=== PATIENT | female | born 1955 | race Caucasian/White ===

== ENCOUNTER → 2023-09-30 09:31 | Outpatient (REF) | payer MEDICARE, OTHER, SELFPAY | LOC: HWWDC 09:31 | PROVIDERS: ATTENDING PHYSICIAN Nurse Practitioner Family; FAMILY PHYSICIAN Family Medicine | DX: Z12.31 Encounter for screening mammogram for malignant neoplasm of breast (principal) | CPT/HCPCS: 77063; 77067 ==

== ENCOUNTER → 2024-07-21 09:32 | Outpatient (REF) | payer MEDICARE, OTHER, SELFPAY | LOC: HWRCS 09:32 | PROVIDERS: ATTENDING PHYSICIAN Student in an Organized Health Care Education/Training Program; FAMILY PHYSICIAN Physician Assistant Medical; REFERRING PHYSICIAN Obstetrics & Gynecology | DX: Z98.890 Other specified postprocedural states (principal); I34.0 Nonrheumatic mitral (valve) insufficiency; Z78.0 Asymptomatic menopausal state | CPT/HCPCS: 77080 ==

== ENCOUNTER → 2024-08-14 09:02 | Outpatient (REF) | payer MEDICARE, OTHER, SELFPAY | LOC: HWRCS 09:02 | PROVIDERS: ATTENDING PHYSICIAN Student in an Organized Health Care Education/Training Program | DX: Z98.890 Other specified postprocedural states (principal); I34.0 Nonrheumatic mitral (valve) insufficiency | CPT/HCPCS: 93306 ==

== ENCOUNTER → 2024-08-31 07:55 | Outpatient (REF) | payer MEDICARE, OTHER, SELFPAY | LOC: HWRAD 07:55 | PROVIDERS: ATTENDING PHYSICIAN Obstetrics & Gynecology; FAMILY PHYSICIAN Physician Assistant Medical | DX: N95.0 Postmenopausal bleeding (principal) | CPT/HCPCS: 76830; 76856 ==

== ENCOUNTER → 2024-09-25 06:24 | Outpatient (REF) | payer MEDICARE, OTHER, SELFPAY ==
[2024-09-25 08:49] LABS: Hematocrit 37.4 % (37.0-47.0); Hemoglobin 12.5 g/dL (12.0-16.0); Mean Corp Hgb Conc. 33.4 g/dL (33.0-37.0); Mean Corpuscular Hgb 34.2 pg (27.0-31.0); Mean Corpuscular Volume 102.5 fL (81.0-99.0); Mean Platelet Volume 10.3 fL (7.4-10.4); Platelet Count 254 10^3/uL (130-400); Red Blood Cell Count 3.65 10^6/uL (4.20-5.40); Red Cell Dist. Width 12.4 % (11.5-14.5)
[2024-09-25 09:21] LABS: Blood Urea Nitrogen 23 mg/dl (7-17); Calcium 10.4 mg/dl (8.4-10.2); Carbon Dioxide 29 mmol/L (22-30); Chloride 102 mmol/L (98-107); Glucose 87 mg/dl (70-99); Potassium 4.6 mmol/L (3.5-5.1); Sodium 142 mmol/L (135-145)
== END ==
LOC: SDSPAT 06:24
PROVIDERS: ATTENDING PHYSICIAN Obstetrics & Gynecology; FAMILY PHYSICIAN Physician Assistant Medical
DX: Z01.818 Encounter for other preprocedural examination (principal)
CPT/HCPCS: 36415; 80048; 85027; 86850; 86900; 86901; 93005

== ENCOUNTER 2024-10-10 06:23 | Day surgery (SDC) | payer MEDICARE, OTHER, SELFPAY ==
[2024-09-25 14:01] VITALS: BMI 23.2
--- NOTE | 2024-09-25 16:02 | PTCARENOTE ---
Abnormal ECG done 09/25/[address] Dudley, no further interventions requested.
[2024-10-10] VITALS (14 sets, daily range): BP systolic 100–138; BP diastolic 66–91; BMI 23.2
[2024-10-10] MEDS: Pyridium 200 MG PO (12:29)
[2024-10-10] MEDS: NORMOSOL-R/PLASMALYTE-A 1000 IV ×2 (12:29→19:25)
[2024-10-10] MEDS: HEPARIN 5000 UNITS SC (12:29)
[2024-10-10] MEDS: COLACE 100 MG PO (21:14)
[2024-10-10] MEDS: TYLENOL 650 MG PO (21:14)
[2024-10-10] MEDS: TORADOL 15 MG IV (21:14)
[2024-10-10] MEDS: COREG 3.125 MG PO (21:15)
--- NOTE | 2024-10-10 23:40 | PTCARENOTE ---
Pt arrived 1999 from PACU. Pt AAOX3. no complaints of pain. VSS. 100% on 2L NC. IVF infusing. vasquez draining orange urine. oriented to room and call dugan. bed locked and in lowest position. care ongoing.
[2024-10-11] MEDS: TORADOL 15 MG IV ×3 (02:18→13:55)
[2024-10-11 03:01] VITALS: BP 101/69
[2024-10-11] MEDS: NORMOSOL-R/PLASMALYTE-A 1000 IV ×2 (03:25→11:25)
[2024-10-11 06:54] LABS: Hematocrit 30.5 % (37.0-47.0); Hemoglobin 10.3 g/dL (12.0-16.0); Mean Corp Hgb Conc. 33.8 g/dL (33.0-37.0); Mean Corpuscular Hgb 34.1 pg (27.0-31.0); Mean Platelet Volume 9.7 fL (7.4-10.4); Platelet Count 214 10^3/uL (130-400); Red Blood Cell Count 3.02 10^6/uL (4.20-5.40); White Blood Cell Count 5.5 10^3/uL (4.8-10.8)
[2024-10-11 07:20] VITALS: BP 102/69
[2024-10-11 07:35] LABS: Blood Urea Nitrogen 24 mg/dl (7-17); Chloride 98 mmol/L (98-107); Potassium 4.7 mmol/L (3.5-5.1); Sodium 132 mmol/L (135-145)
--- NOTE | 2024-10-11 07:49 | W.PN.GYN ---
Today's Communication / Plan
-
Followup voiding trial. Ambulate with assistance. Monitor O2 off oxygen
Physician Note
-
68yoF PMH POP admitted for postop care after Robotic supracervical hysterecotmy, BSO, sacrocolpopexy, posterior colporrhaphy, perineoplasty single incision midurethral sling placement on 10/10/24. Patient remained admitted overnight due to hypoxia
postop needing supplemental oxygen.
S:
Patient was evaluated on AM rounds. She is no longer on O2. She reports feeling abdominal bloating since surgery. She is passing flatus and tolerating breakfast. Keith was removed this morning but is pending to void. She has yet to get out of bed
but feels eager to go home later today. Incisional pain is controlled. Denies nausea, chest pain, palpitations, SOB, weakness.
O
GA: Well appearing female in NAD
HEENT: Normocephalic, EOMI
Pulm: SPO2 00% on RA, speaking in full sentences
Abd: soft, mild distension, incisions intact with dermabond, minimal eccymosis noted around midline incision, mild localized tender
/[employer]: minimal bright red blood noted in perineal pad
MSK: negative LE edema
Vital Signs
Temp Pulse Resp BP Pulse Ox
98.0 F 91 17 101/69 99
10/11/24 03:01 10/11/24 03:01 10/11/24 03:01 10/11/24 03:01 10/11/24 05:34
Intake and Output
10/10/24 10/11/24 10/12/24
06:59 06:59 06:59
Intake Total 2585 / 2585
Output Total 575 / 575
Balance 2009
Intake:
Oral fluids 960 / 960
IV fluids (Total) 1625 / 1625
Normosol 250 / 250
Output:
Urine, Keith 57 / 575
Laboratory Results
10/11/24 05:36
10/11/24 05:36
68yoF PMH mitral valve regurgitation, a fib, POP currently POD1 s/p Robotic supracervical hysterectomy, BSO, sacrocolpopexy, posterior colporrhaphy, perineoplasty single incision midurethral sling placement Patient is stable. Mild decrease in H/H
Patient is no longer on O2 and has normal SPO2 on RA.
- Continue to monitor vitals off O2
- Stop IVF
- Followup voiding trial
- Monitor Is and Os
- Regular diet
- Continue home medications
- Restart eliquis tomorrow
- Tylenol prn for mild pain; hydrocodone prn for severe pain
- Continue local ice packs for incisions pain
- Monitor vaginal bleeding
- Ambulate with assistance
- Likely discharge today
- Followup with urology office in 2 weeks
[2024-10-11 07:51] LABS: Carbon Dioxide 22 mmol/L (22-30); Estimated Creatinine Clearance 38 ml/min
[2024-10-11] MEDS: TYLENOL 650 MG PO (08:53)
[2024-10-11] MEDS: LASIX 20 MG PO (08:53)
[2024-10-11] MEDS: COREG 3.125 MG PO (08:53)
[2024-10-11] MEDS: COLACE 100 MG PO (08:53)
--- NOTE | 2024-10-11 09:06 | CM ---
Cm reviewed medical records. CM met with patient in room. CM confirmed demographics. Patient lives independently with . Patient has had a history of V[facility], but could not remember the agency. They are currently not on service. Patient is active
with her PCP. Patient uses [facility] for medication services.
Plan: Home no needs.
[2024-10-11 11:20] VITALS: BP 104/70
[2024-10-11 15:40] VITALS: BP 147/45
[2024-10-11] MEDS: LOVENOX 40 MG SC (17:56)
[2024-10-11] MEDS: NORMOSOL-R/PLASMALYTE-A IV (17:56)
[2024-10-11 18:09] LABS: Hepatitis C Antibody Negative (Negative)
== END 2024-10-11 18:45 | disposition home or self-care (01) ==
LOC: SDS 06:23
PROVIDERS: ATTENDING PHYSICIAN Obstetrics & Gynecology; FAMILY PHYSICIAN Physician Assistant Medical
DX: N81.3 Complete uterovaginal prolapse (principal); N39.3 Stress incontinence (female) (male); N95.0 Postmenopausal bleeding; N84.0 Polyp of corpus uteri
CPT/HCPCS: 57425; 58542; 57260; 57288; 88305; 88311; 80051; 82565; 84520; 85027; 86803; C1713; C1763; C1771

== ENCOUNTER → 2024-10-16 08:12 | Outpatient (REF) | payer MEDICARE, OTHER, SELFPAY | LOC: HWWDC 08:12 | PROVIDERS: ATTENDING PHYSICIAN Obstetrics & Gynecology; FAMILY PHYSICIAN Physician Assistant Medical | DX: Z12.31 Encounter for screening mammogram for malignant neoplasm of breast (principal) | CPT/HCPCS: 77063; 77067 ==